=== PATIENT | female | born 1995 | race Caucasian/White ===

== ENCOUNTER 2018-05-27 03:26 | Inpatient (IN) | payer OTHER ==
[~2018-05-27] VITALS: Ht 160 cm; Wt 92.0 kg
[~2018-05-27 03:26] MED LIST: MTR600X PO; PRENTAB26 PO; SERT50TA PO
[2018-05-27] MEDS ORDERED: LACTATED RINGER'S 1000ML 1,000 ML IV SCH (03:55)
[2018-05-27] MEDS ORDERED: CEFAZOLIN IV 2,000 MG in DEXTROSE 5% 50ML 50 ML IV ONE (04:00)
[2018-05-27] MEDS ORDERED: CEFAZOLIN IV 2,000 MG in SYRINGE 0 ML IV ONE (04:00)
[2018-05-27 04:37] LABS: HEMATOCRIT 38.1 % (37-47); HEMOGLOBIN 13.1 g/dL (12.0-16.0); MEAN CELL VOLUME 87.8 fL (80-100); MEAN CORPUSCULAR HEMOGLOBIN 30.2 pg (25-34); MEAN CORPUSCULAR HGB CONC 34.4 g/dl (32-36); MEAN PLATELET VOLUME 11.3 fL (7.4-10.4); PLATELET COUNT 136 K/uL (130-400); RED CELL DISTRIBUTION WIDTH CV 13.3 % (11.5-14.5); RED CELL DISTRIBUTION WIDTH SD 42.9 fL (36.4-46.3); WHITE BLOOD COUNT 10.99 K/uL (4.8-10.8)
[2018-05-27 04:53] VITALS: Ht 160 cm; Wt 92.0 kg
[2018-05-27] MEDS ORDERED: OXYCODONE/ACETAMINOPHEN 5-325 TAB PO PRN (05:30)
[2018-05-27] MEDS ORDERED: BENZOCAINE 20% AER SPR 82.5 GM CAN EXT PRN (05:30)
[2018-05-27] MEDS ORDERED: SUPERCREAM 0.870 % 15GM JAR EXT PRN (05:30)
[2018-05-27] MEDS ORDERED: HYDROCORTISONE ACETATE 25 MG SUPP PR PRN (05:30)
[2018-05-27] MEDS ORDERED: ACETAMINOPHEN/CODEINE 300/30MG TAB PO PRN ×2 (05:30)
[2018-05-27] MEDS ORDERED: LANOLIN OINT EXT PRN (05:30)
[2018-05-27] MEDS ORDERED: OXYTOCIN 30 UNITS/500ML NSS IV PRN (05:30)
[2018-05-27] MEDS ORDERED: ACETAMINOPHEN 325 MG TAB PO PRN (05:30)
--- NOTE | 2018-05-27 07:19 | OPERATIVE REPORT ---
DATE OF OPERATION: 05/27/2018 Ms. Gomez was admitted in active labor about 7-8 cm. She has positive beta strep with penicillin allergy. We were able to get 2 grams of Ancef in prior to delivery. Second time, I checked her, she had ruptured her membranes spontaneously, fully dilated. She pushed about 4 times, pushed out a live via direct occiput anterior position over an intact perineum. was suctioned through the mouth and the nose. Body was delivered without difficulty. Cord was clamped and cut. It was cut by the father. Cord blood was taken. With IV Pitocin running, the placenta was removed intact. There was a lot of meconium staining noted. Fundal placenta was sent for exam. Inspection of the perineum revealed a first-degree laceration. This was repaired anatomically with a heavy Vicryl. The vaginal mucosa was approximated out to beyond the hymenal ring with a running Vicryl. A deep suture of Vicryl was used to approximate the bulbocavernosus muscle, separate deep suture was used to approximate the perineal body and a running subcuticular suture was used to approximate the perineal skin edges. Following this, vaginal exam including rectovaginal examination revealed no hematoma formation or sponges in the vagina. There were no stitches in the rectum. Estimated blood loss was about 300 mL Apgars were deferred to the nurses. I attest to the content of the Intraoperative Record and any orders documented therein. Any exception s are noted below.
[2018-05-27] MEDS: DOCUSATE SODIUM 100 MG CAP PO SCH ×2 (07:40→20:19)
[2018-05-27] MEDS: FERROUS SULFATE 325 MG TAB PO SCH (07:40)
[2018-05-27] MEDS: PRENATAL VITAMIN TAB PO SCH (07:40)
[2018-05-27 09:40] VITALS: BP 143/81; PULSE 83; TEMP 36.8
[2018-05-27 11:44] VITALS: BP 138/82; PULSE 79; TEMP 36.4; O2SAT 97
[2018-05-27] MEDS: IBUPROFEN 600 MG TAB PO PRN (14:24)
[2018-05-27 15:51] VITALS: BP 127/81; PULSE 75; TEMP 36.7; O2SAT 99
[2018-05-27 20:20] VITALS: BP 135/84; PULSE 80; TEMP 36.4
[2018-05-28 00:10] VITALS: BP 128/85; PULSE 76; TEMP 36.9
[2018-05-28 03:25] VITALS: BP 136/84; PULSE 72; TEMP 36.6
[2018-05-28 06:59] LABS: HEMATOCRIT 36.9 % (37-47); HEMOGLOBIN 12.4 g/dL (12.0-16.0)
[2018-05-28 08:00] VITALS: BP 124/83; PULSE 64; TEMP 36.7
[2018-05-28] MEDS: FERROUS SULFATE 325 MG TAB PO SCH (08:04)
[2018-05-28] MEDS: DOCUSATE SODIUM 100 MG CAP PO SCH ×2 (08:04→20:34)
[2018-05-28] MEDS: PRENATAL VITAMIN TAB PO SCH (08:05)
[2018-05-28] MEDS: SERTRALINE HCL 50 MG TAB PO SCH ×3 (10:31→20:36)
[2018-05-28] MEDS: IBUPROFEN 600 MG TAB PO PRN ×2 (14:04→20:38)
[2018-05-28 15:20] VITALS: BP 149/83; PULSE 84; TEMP 36.6; O2SAT 99
[2018-05-28] MEDS ORDERED: BISACODYL 5 MG TABEC PO SCH (20:00)
[2018-05-29 00:10] VITALS: BP 138/87; PULSE 78; TEMP 36.5; O2SAT 98
[2018-05-29 03:15] VITALS: BP 133/84; PULSE 76; TEMP 36.7; O2SAT 98
[2018-05-29] MEDS: IBUPROFEN 600 MG TAB PO PRN (03:22)
[2018-05-29] MEDS ORDERED: BISACODYL 10 MG SUPP PR PRN (07:00)
[2018-05-29 07:55] VITALS: BP 130/81; PULSE 78; TEMP 36.7; O2SAT 99
[2018-05-29] MEDS: FERROUS SULFATE 325 MG TAB PO SCH (08:58)
[2018-05-29] MEDS: PRENATAL VITAMIN TAB PO SCH (08:58)
[2018-05-29] MEDS: DOCUSATE SODIUM 100 MG CAP PO SCH (08:58)
--- NOTE | 2018-05-29 10:13 | OB/GYN Progress Note ---
SITE MANAGER Progress Note Date of Service: May 29, 2018. Patient is seen and examined. She feels well, no complaints. Likes to go home Ambulating without dizziness Voiding without difficulty Tolerating regular diet with out N&V Bleeding is minimal No fever/ chills/ CP/ SOB/ N&V/ Leg pain Bottle feeding without problems Date Time Temp Pulse Resp B/P (MAP) Pulse Ox O2 Delivery O2 Flow Rate FiO2 05/29/18 03:15 36.7 76 16 133/84 (100) 98 Room Air 05/29/18 00:10 Room Air 05/29/18 00:10 36.5 78 16 138/87 (104) 98 Room Air 05/28/18 15:20 36.6 84 18 149/83 (105) Room Air 05/28/18 15:20 99 Room Air Test 05/27/18 04:25 05/28/18 06:34 White Blood Count 10.99 H Red Blood Count 4.34 Hemoglobin 13.1 12.4 Hematocrit 38.1 36.9 L Mean Corpuscular Volume 87.8 Mean Corpuscular Hemoglobin 30.2 Mean Corpuscular Hemoglobin Concent 34.4 RDW Standard Deviation 42.9 RDW Coefficient of Variation 13.3 Platelet Count 136 Mean Platelet Volume 11.3 H PE: General: Alert, orientedx3, NAD Abd: soft, NT, fundus firm, below Umbilicus Perineum intact, Lochia rubra minimal Ext; NT, no edema AP: 22 yo s/p , ppd# 2 VSS Afebrile doing well Continue routine care All questions were answered Discussed when to call D/C home , f/u in office
--- NOTE | 2018-05-29 10:15 | Discharge Instructions ---
Discharge Instructions Date of Service May 29, 2018. Admission Reason for Admission: Active Labor At Term Discharge Discharge Diagnosis / Problem: Discharge Goals Goal(s): Routine recovery after delivery Activity Recommendations Activity Limitations: as noted below ACTIVITY RECOMMENDATIONS: * Gradual return to full activity over the next 2-3 weeks. * No lifting - nothing heavier than baby over the next 2-3 weeks. * Do not engage in vigorous exercise, sexual activity or sports until cleared by your physician. * Do not drive or operate any motorized equipment until cleared by your physician. * You may shower/bathe daily. BREAST CARE: If you are not breast feeding: * Wear a supportive bra 24 hours a day for one to two weeks. * Avoid stimulating your breasts and nipples as much as possible during the first few weeks after delivery. * When taking a shower, have the warm water hit your back, not breasts. * When your breasts feel full, apply ice packs. Usually three to four times a day helps ease the discomfort. * Take a mild pain medication (Tylenol/Motrin) when you are uncomfortable. If breast feeding: * Use breast milk to lubricate nipples. Lansinoh cream may be used for sore nipples. You do not need to remove cream prior to breast feeding. If using a different brand of cream, check the label for directions regarding removal of cream prior to nursing. * Wear a supportive bra. * If having problems with breasts or breast feeding, call a portrait consultant or your health care provider. EPISIOTOMY CARE: After delivery, if you have an episiotomy (stitches), the following steps will ease discomfort and aid healing. * For the first 24 hours after delivery, place ice packs next to your episiotomy to help reduce swelling. * After the first 24 hour-period, sitz baths, either portable or in the tub, are suggested. A shower with a shower arm sprayed over the episiotomy may be comforting. * Sabrina care should be done after each voiding and bowel movement. Squirt warm water from a plastic bottle over the perineum (region of the body between the anus and urinary opening) and pat dry. * Use Dermoplast to ease discomfort. Shake container. [place] directly over the episiotomy. * Place a Tucks on a clean sanitary pad next to your episiotomy. OVER THE COUNTER MEDICATION: * For discomfort or pain, you may use Acetaminophen (Tylenol), Ibuprofen (Advil ), or Naproxen (Aleve) following the package directions. * For constipation you may use Colace following the package directions. SPECIAL CARE INSTRUCTIONS: When you are discharged from the hospital, it is important for you to follow the instructions listed below: * During the first week at home, you should be able to care for yourself and your baby. In addition, the usual light household activities are encouraged. * Limit your activities to the way you feel. Do not try to clean the house or move furniture. Be sensible. * If you actively engage in sports and have done so up until the time of your delivery, you may resume these activities as soon as you feel able. This may take up to one month or even longer. Use good judgment. * Continue to take your vitamins for at least six weeks after the of your baby. * Your diet need not be limited unless you were on a special diet before your delivery. Breast-feeding mothers need around 2500 calories per day and at least 64-80 ounces of fluid per day (8 to 10 glasses). * You should eat foods from the four major food groups. Crash diets or fad diets are to be avoided. Eating lean meats, fresh fruits and vegetables, low-fat dairy products, high fiber foods and a regular exercise program, will help you get back to your pre- weight without putting your health at risk. * Constipation is sometimes a problem after delivery. Take a mild laxative as needed. If breast feeding, Milk of Magnesia is acceptable to use. You may use a suppository or Fleets enema if no episiotomy. * A daily shower or tub bath is suggested. Be sure to thoroughly and gently dry the perineum. * A bloody vaginal discharge will usually continue until around four weeks post . A small amount of bleeding may continue for as long as six weeks. Vaginal discharge changes from the bright red bleeding after delivery to pink then brownish and finally yellowish-pink before becoming white and disappearing. * Bleeding may increase with activity. Your first period may come in 4-8 weeks. If you are breast feeding, your period may be delayed even longer. * [place] (sex) can begin whenever both you and your partner feel comfortable and do not have any form of genital infection. It is recommended that you wait until after your return appointment and discuss with your physician. If you have questions, please talk to your health care practitioner. A condom should be used to prevent infection and . * Foreplay, gentle intercourse and lubrication is very important the first several times to prevent pain. A water-based lubricant such as K-Y jelly or Astroglide may be used. * Tampons may be used six weeks after delivery. * Douching should be avoided for 6 weeks after delivery. * If you have RH negative blood and your baby is RH positive, you will receive RHOGAM by injection prior to discharge. The nurse will give you a card to keep with you that has the date and place that you received RHOGAM after delivery. * During your care, you had a Rubella screen done to check for the presence of rubella antibodies in your blood. If your test was negative, you will receive a Rubella vaccine prior to discharge. This vaccine may cause a fever, soreness at the injection site and flu-like symptoms. If these symptoms persist, notify your health care practitioner. is not advised for three months after a Rubella vaccine. There is a higher chance of having a baby with defects if conceived within three months of getting the vaccine. * If you were discharged 24 hours from delivery or before 48 hours: Visiting nurses will come to your home 48 hours after discharge to assess you and your baby. The visiting nurse will meet with you while you are in the hospital to arrange a time and get directions to your home. * Verbalizes understanding of car seat law as reviewed with patient nursing. * Car Seat hand-out given and reviewed with patient by nursing. * Shaken baby information reviewed with patient by nursing. Call you doctor if: * Heavy bleeding (saturating several pads an hour) or passing clots the size of your fist. * A fever >101 degrees F (38.3 degrees C) on two occasions four hours apart and/or chills. * Unusual pain in the pelvic or vaginal areas. * "Baby Blues" lasting longer than two weeks. If you have any questions or concerns, call your health care practitioner at . FOLLOW-UP VISIT: * Please call the office at to schedule a 6 week examination. It is important you keep this appointment. * It is important for you to make arrangements for either yearly or twice yearly check-ups thereafter. . Current Hospital Diet Patient's current hospital diet: Regular OB Diet Discharge Diet Recommended Diet: Regular Diet Pending Studies Studies pending at discharge: no Medical Emergencies . Who to Call and When: Medical Emergencies: If at any time you feel your situation is an emergency, please call 911 immediately. . Non-Emergent Contact Non-Emergency issues call your: Hospital Doctor, Surgeon Call Non-Emergent contact if: temperature is above 100.5, your pain is not controlled, your pain is worsening . . "Provider Documentation" section prepared by Scott Dejesus. .
[2018-05-29 12:00] VITALS: BP_DIAS 81; PULSE 78; TEMP 36.7
== END 2018-05-29 12:00 | disposition home or self-care (01) | DRG 775 ==
LOC: C.OPB 03:26 → C.LD 03:31 → C.OPB 03:59 → C.OBG 09:54
PROVIDERS: ADMIT Obstetrics & Gynecology; ATTEND Obstetrics & Gynecology
PROC: 10E0XZZ Delivery of Products of Conception, External Approach (ICD-10-PCS; principal; 2018-05-27)
PROC: 0HQ9XZZ Repair Perineum Skin, External Approach (ICD-10-PCS; principal; 2018-05-27)
DX: O77.0 Labor and delivery complicated by meconium in amniotic fluid (principal); O99.824 Streptococcus B carrier state complicating childbirth; O70.0 First degree perineal laceration during delivery; Z3A.39 39 weeks gestation of pregnancy; Z37.0 Single live birth; Z88.0 Allergy status to penicillin